=== PATIENT | female | born 1955 | race Caucasian/White ===

== ENCOUNTER 2020-12-07 07:30 | Inpatient (IN) | payer MEDICAID ==
[2020-11-30 16:43] LABS: BASOPHILS % (AUTO) 0.7 % (0-1); EOSINOPHILS # (AUTO) 0.1 X10'3 (0-0.9); EOSINOPHILS % (AUTO) 1.8 % (0-6); LYMPHOCYTES % (AUTO) 34.6 % (21-51); MEAN CORPUSCULAR HEMOGLOBIN 29.4 PG (27.0-31.0); MEAN CORPUSCULAR HGB CONC 33.3 g/dL (33.0-36.5); MEAN CORPUSCULAR VOLUME 88.2 FL (78-98); MEAN PLATELET VOLUME 6.9 FL (7.4-10.4); MONOCYTES # (AUTO) 0.4 X10'3 (0-0.9); MONOCYTES % (AUTO) 6.4 % (2-12); NEUTROPHILS # (AUTO) 3.2 X10'3 (1.8-7.7); NEUTROPHILS % (AUTO) 56.5 % (42-75); PRE OP HEMATOCRIT 37.8 % (35.0-45.0); PRE OP HEMOGLOBIN 12.6 g/dL (12.0-16.0); PRE OP PLATELET COUNT 270 X10'3 (140-440); RED BLOOD COUNT 4.29 X10'6 (4.20-5.60); RED CELL DISTRIBUTION WIDTH 14.2 % (11.5-14.5)
[2020-11-30 17:15] LABS: ALBUMIN 3.7 G/DL (3.4-5.0); ALBUMIN/GLOBULIN RATIO 1.2 (1.1-1.5); ALKALINE PHOSPHATASE 75 IU/L (46-116); BLOOD UREA NITROGEN 17 MG/DL (7-18); BUN/CREATININE RATIO 16.7 (6.6-38.0); CALCIUM 9.5 MG/DL (8.5-10.1); CHLORIDE 108 MMOL/L (99-107); CREATININE 1.02 MG/DL (0.40-0.90); PRE OP ALT 20 U/L (30-65); PRE OP ANION GAP 6 (8-16); PRE OP AST 13 U/L (10-37); PRE OP BILIRUB, TOTAL 0.2 MG/DL (0.0-1.0); PRE OP GLUCOSE 102 MG/DL (70-104); PRE OP POTASSIUM 3.7 MMOL/L (3.4-5.1); PRE OP SODIUM 145 MMOL/L (135-145); TOTAL CARBON DIOXIDE 31.1 MMOL/L (24-32); TOTAL PROTEIN 6.8 G/DL (6.4-8.2); eGFR 55 ML/MIN
[2020-12-07] VITALS (16 sets, daily range): BP systolic 92–136; BP diastolic 48–84
[~2020-12-07] VITALS: Ht 162.6 cm; Wt 77.7 kg
[~2020-12-07 07:30] MED LIST: ACYC-129 PO; CHOL2400 PO; CYCL-394 PO; GABA600T13 PO; HYDR-3965 PO; HYDROmorphone 1 mg/ml syringe IV PRN; HYDROmorphone inj. 0.5 MG/0.5 ML DISP.SYRIN IV PRN; LORA10TA7 PO; METH-352 PO; MULT-1085 PO; OMEG1CAP46 PO; acetaminophen 325mg tablet PO ONE; acetaminophen 325mg tablet PO PRN; bisacodyl 10mg suppository rectal RC PRN; cefazolin/dext.iso 2gm/100ml IV ONE; celeCOXIB 100mg capsule PO ONE; diphenhydrAMINE 25mg capsule PO PRN; famotidine 20mg tablet PO ONE; gabapentin 300mg capsule PO ONE; magnesium hydroxide 30ml (MOM) UD suspension PO PRN; metoclopramide 5 mg/ml inj IV ONE; ondansetron/PF 4mg/2ml inj IV PRN; oxyCODONE SR 10mg (sust. release) tab -2 tabs (20mg) PO ONE; ringers solution, lacted 1,000 ML IV SCH; tranexamic acid 1gm/0.7% sal. 100 ML IV ONE; vancomycin 1,500 MG in NS 300ml IV soln IV ONE
[2020-12-07] MEDS ORDERED: vancomycin/NS 1 GM ADD-VANTAGE 250 ML IV SCH (08:00)
[2020-12-07] MEDS ORDERED: MIDAZolam 1 MG/ML 5ML VIAL ONE (11:25)
[2020-12-07] MEDS ORDERED: fentaNYL/PF 50MCG/1 ML 2ML syringe ONE (11:25)
[2020-12-07] MEDS ORDERED: ROPIVAcaine 0.5% (5mg/ml) 30ml vial ONE (11:26)
[2020-12-07] MEDS ORDERED: vancomycin 1,000mg inj ONE (11:26)
[2020-12-07] MEDS ORDERED: cloNIDine hcl/PF 100mcg/ml inj ONE (11:26)
[2020-12-07] MEDS ORDERED: epiNEPHrine 1 mg/ml inj ONE (11:26)
[2020-12-07] MEDS ORDERED: acetaminophen 1,000mg/100ml IV 100 ML IV ONE (11:44)
[2020-12-07] MEDS ORDERED: LIDOcaine 1%/PF 5ML 10 MG/ML VIAL ONE (12:10)
[2020-12-07] MEDS ORDERED: propofol inj 20 ML IV ONE (12:10)
[2020-12-07] MEDS ORDERED: ePHEDrine 50MG/ML INJ. ONE (12:25)
--- NOTE | 2020-12-07 12:45 | NUR ---
Received from OR via SURGICAL BED WITH NAN , accompanied by Anesthesiologist AILYN and report given by Anesthesiolgist. PATIENT WITH SESAR DRESSING TO RIGHT HIP THAT IS CDI. + DP ON RIGHT FOOT. 18G PIV IN LEFT UE RUNNING LR AT 100. SCDS DONNED. ON ROOM AIR WITH 100% SATURATIONS. Addendum: 12/07/20 at 1312 by Jenaro Chanel RN, RN Amended: Links added.
--- NOTE | 2020-12-07 13:52 | NUR ---
received report from veronica barton in recovery
[2020-12-07] MEDS: gabapentin 300mg capsule PO SCH ×3 (14:46→21:52)
[2020-12-07] MEDS: ceFAZolin/D5W- 1GM premix 50 ML IV SCH ×2 (14:46→16:27)
[2020-12-07] MEDS: loratadine 10mg tablet PO SCH (14:46)
[2020-12-07] MEDS: ascorbic acid 500mg tablet PO SCH ×2 (14:47→21:51)
[2020-12-07] MEDS: multivitamins, therapeutics tablet PO SCH (14:47)
[2020-12-07] MEDS: aspirin 325mg tablet PO SCH (14:47)
[2020-12-07] MEDS: methylphenidate 5mg tablet PO SCH ×2 (14:47→20:00)
[2020-12-07] MEDS ORDERED: tranexamic acid 1gm/0.7% sal. 100 ML IV ONE (16:00)
[2020-12-07] MEDS: potassium cl 20mEq in 1/2 NS 1,000 ML IV SCH ×3 (17:17→23:30)
--- NOTE | 2020-12-07 18:46 | NUR ---
GAVE REPORT EMIR LEARY
[2020-12-07] MEDS: sennosides 8.6mg tablet PO SCH (21:00)
--- NOTE | 2020-12-07 21:31 | NUR ---
Amb with fww to bathroom x2 sba and back to bed.
[2020-12-07] MEDS: HYDROcodone/acetaminophen 10/325mg tab PO PRN (21:43)
[2020-12-08 02:00] VITALS: BP 105/64
--- NOTE | 2020-12-08 02:24 | NUR ---
Report to Nohelia FIELD.
--- NOTE | 2020-12-08 02:36 | NUR ---
RECEIVED REPORT FROM EMIR LEARY
[2020-12-08] MEDS: HYDROcodone/acetaminophen 10/325mg tab PO PRN ×4 (05:05→20:50)
[2020-12-08 05:44] LABS: BASOPHILS % (AUTO) 0.3 % (0-1); EOSINOPHILS # (AUTO) 0.1 X10'3 (0-0.9); EOSINOPHILS % (AUTO) 1.7 % (0-6); HEMATOCRIT 35.1 % (35.0-45.0); HEMOGLOBIN 11.5 g/dl (12.0-16.0); LYMPHOCYTES # (AUTO) 1.4 X10'3 (1.1-4.8); LYMPHOCYTES % (AUTO) 24.1 % (21-51); MEAN CORPUSCULAR HEMOGLOBIN 29.1 PG (27.0-31.0); MEAN CORPUSCULAR HGB CONC 32.6 g/dL (33.0-36.5); MEAN PLATELET VOLUME 7.3 FL (7.4-10.4); MONOCYTES # (AUTO) 0.4 X10'3 (0-0.9); NEUTROPHILS # (AUTO) 3.8 X10'3 (1.8-7.7); NEUTROPHILS % (AUTO) 66.9 % (42-75); PLATELET COUNT 224 X10'3 (140-440); RED BLOOD COUNT 3.95 X10'6 (4.20-5.60); RED CELL DISTRIBUTION WIDTH 14.1 % (11.5-14.5); WHITE BLOOD COUNT 5.7 X10'3 (4.5-11.0)
[2020-12-08 05:47] LABS: ANION GAP 7 (8-16); CHLORIDE 112 MMOL/L (99-107); POTASSIUM 4.1 MMOL/L (3.5-5.1); SODIUM 144 MMOL/L (135-145); TOTAL CARBON DIOXIDE 25.5 MMOL/L (24-32)
--- NOTE | 2020-12-08 06:27 | NUR ---
Problems reprioritized. Patient report given, questions answered & plan of care reviewed with EMIR KOROMA.
--- NOTE | 2020-12-08 06:28 | NUR ---
Patient in room [facility]TH[facility] 4021. I have received report from Nohelia FIELD and had the opportunity to ask questions and assume patient care.
[2020-12-08 06:44] VITALS: BP 135/74
[2020-12-08] MEDS: potassium cl 20mEq in 1/2 NS 1,000 ML IV SCH ×3 (07:30→23:32)
[2020-12-08] MEDS: methylphenidate 5mg tablet PO SCH ×2 (08:00→19:56)
[2020-12-08] MEDS ORDERED: bisacodyl 10mg suppository rectal RC PRN (08:40)
[2020-12-08] MEDS ORDERED: docusate sod 100mg capsule PO ONE (08:45)
[2020-12-08] MEDS: multivitamins, therapeutics tablet PO SCH (08:46)
[2020-12-08] MEDS: aspirin 325mg tablet PO SCH (08:47)
[2020-12-08] MEDS: ascorbic acid 500mg tablet PO SCH ×2 (08:47→19:56)
[2020-12-08] MEDS: loratadine 10mg tablet PO SCH (08:47)
[2020-12-08] MEDS: gabapentin 300mg capsule PO SCH ×3 (08:47→19:56)
--- NOTE | 2020-12-08 10:15 | NUR ---
Educated patient on insentive spirometer she is using it well and without difficulty.
[2020-12-08 11:02] VITALS: BP 137/85
--- NOTE | 2020-12-08 13:13 | NUR ---
Joint surgery consult: Pt admit s/p R hip surgery this admit. Pt seen by DENISE written/verbal high protein ed w/ DENISE contact information provided. Addendum: 12/08/20 at [address] Amended: Links added.
[2020-12-08 15:21] VITALS: BP 102/74
--- NOTE | 2020-12-08 16:23 | NUR ---
Changed selwyn dressing per Charlene Castle request.
[2020-12-08 18:15] VITALS: BP 116/69
[2020-12-08] MEDS: docusate sod 100mg capsule PO SCH (19:56)
[2020-12-08] MEDS: sennosides 8.6mg tablet PO SCH (19:56)
[2020-12-08] MEDS: celeCOXIB 100mg capsule PO SCH (19:56)
[2020-12-08] MEDS ORDERED: mag hydrox/Alum hydrox/simeth 30ml oral suspension PO ONE (20:05)
[2020-12-08 23:07] VITALS: BP 102/62
--- NOTE | 2020-12-08 23:53 | NUR ---
Problems reprioritized. Patient report given, questions answered & plan of care reviewed with Jaimee FIELD.
--- NOTE | 2020-12-08 23:58 | NUR ---
Assumed care report received from Yana Peterson.
[2020-12-09 06:00] VITALS: BP 115/75
[2020-12-09 06:04] LABS: BASOPHILS % (AUTO) 0.4 % (0-1); EOSINOPHILS # (AUTO) 0.2 X10'3 (0-0.9); EOSINOPHILS % (AUTO) 2.9 % (0-6); HEMATOCRIT 34.1 % (35.0-45.0); HEMOGLOBIN 11.4 g/dl (12.0-16.0); LYMPHOCYTES # (AUTO) 1.4 X10'3 (1.1-4.8); LYMPHOCYTES % (AUTO) 23.4 % (21-51); MEAN CORPUSCULAR HEMOGLOBIN 29.2 PG (27.0-31.0); MEAN CORPUSCULAR HGB CONC 33.4 g/dL (33.0-36.5); MEAN CORPUSCULAR VOLUME 87.5 FL (78-98); MEAN PLATELET VOLUME 7.3 FL (7.4-10.4); MONOCYTES # (AUTO) 0.4 X10'3 (0-0.9); MONOCYTES % (AUTO) 7.6 % (2-12); NEUTROPHILS # (AUTO) 3.8 X10'3 (1.8-7.7); NEUTROPHILS % (AUTO) 65.7 % (42-75); PLATELET COUNT 204 X10'3 (140-440); RED BLOOD COUNT 3.89 X10'6 (4.20-5.60); RED CELL DISTRIBUTION WIDTH 13.9 % (11.5-14.5); WHITE BLOOD COUNT 5.8 X10'3 (4.5-11.0)
--- NOTE | 2020-12-09 06:16 | NUR ---
Report to Oksana FIELD.
--- NOTE | 2020-12-09 06:39 | NUR ---
Patient in room ORTHO 4021. I have received report from Jaimee FIELD and had the opportunity to ask questions and assume patient care.
[2020-12-09] MEDS: gabapentin 300mg capsule PO SCH ×2 (08:00→12:14)
[2020-12-09] MEDS: multivitamins, therapeutics tablet PO SCH (08:30)
[2020-12-09] MEDS: methylphenidate 5mg tablet PO SCH (08:30)
[2020-12-09] MEDS: aspirin 325mg tablet PO SCH (08:30)
[2020-12-09] MEDS: ascorbic acid 500mg tablet PO SCH (08:31)
[2020-12-09] MEDS: loratadine 10mg tablet PO SCH (08:31)
[2020-12-09] MEDS: docusate sod 100mg capsule PO SCH (08:32)
[2020-12-09] MEDS: HYDROcodone/acetaminophen 10/325mg tab PO PRN (08:34)
[2020-12-09] MEDS: celeCOXIB 100mg capsule PO SCH (08:41)
[2020-12-09 10:00] VITALS: BP 106/67
[2020-12-09] MEDS ORDERED: SENN-173 PO (14:41)
[2020-12-09] MEDS ORDERED: HYDR-3972 PO (14:41)
--- NOTE | 2020-12-09 16:04 | NUR ---
Patient discharged at 1600. Belongings sent with patient. Iv removed, tip intact, no complications. Pt educated on post procedure care and follow up. Pt discharged in stable condition via the [facility] van to home.
== END 2020-12-09 14:40 | disposition home or self-care (01) | DRG 324 ==
LOC: EDSTATUS 07:30 → PAS IN 07:30 → UNDOADMIN 08:06 → ORTHO 4S 14:00 → PAS IN 14:00 → ORTHO 4S 21:30
PROVIDERS: ADMIT Orthopaedic Surgery; ATTEND Orthopaedic Surgery
PROC: 0SR906Z Replacement of Right Hip Joint with Oxidized Zirconium on Polyethylene Synthetic Substitute, Open Approach (ICD-10-PCS; principal; 2020-12-07 11:20)
DX: M16.11 Unilateral primary osteoarthritis, right hip (principal); D62 Acute posthemorrhagic anemia; Z20.822 Contact with and (suspected) exposure to COVID-19; M47.816 Spondylosis without myelopathy or radiculopathy, lumbar region; M54.5 Low back pain; F32.9 Major depressive disorder, single episode, unspecified; Z96.653 Presence of artificial knee joint, bilateral; G47.30 Sleep apnea, unspecified; Z79.82 Long term (current) use of aspirin; Z88.5 Allergy status to narcotic agent; Z87.891 Personal history of nicotine dependence; Z79.899 Other long term (current) drug therapy
CPT/HCPCS: 36415; 72170; 80051; 80053; 82948; 85025; 87081; 87635; 97110; 97116; 97161; 97530; A7000; C1776; G0378; J0131; J0171; J0690; J0735; J1170; J2250; J2405; J2704; J2765; J2795; J3010; J3370; J3480; J7040; J7120